=== PATIENT | male | born 1995 | race Caucasian/White ===

== ENCOUNTER 2018-04-12 16:23 | Emergency (ER) | payer OTHER ==
[2018-04-12] MEDS ORDERED: Nicotine Inhaler* 10 MG AMP INH PRN (16:47)
[2018-04-12] MEDS ORDERED: Mouth Piece, Nicotine* 1 EACH CARTRIDGE INH PRN (16:47)
[2018-04-12 17:08] LABS: ABS Basophils 0 10^3/ul (0-0.2); ABS Eosinophils 0.1 10^3/ul (0-0.6); ABS Lymphocytes 1.5 10^3/ul (1.0-4.8); ABS Monocytes 0.4 10^3/ul (0-0.8); ABS Neutrophils 1.4 10^3/ul (1.5-7.7); ABS Nucleated RBC 0 10^3/ul; Eosinophil % 3.4 % (0-6); Hematocrit 44 % (42-52); Hemoglobin 15.4 g/dl (14.0-18.0); Mean Corpuscular HGB Conc 35 g/dl (31-36); Mean Corpuscular Hemoglobin 29 pg (27-31); Mean Corpuscular Volume 83 fL (80-94); Mean Platelet Volume 8.2 um3 (7.4-10.4); Nucleated Red Blood Cells % 0.2; Platelet Count 213 10^3/ul (150-450); Red Blood Count 5.28 10^6/ul (4.00-5.40); Red Cell Distribution Width 14 % (10.5-15); White Blood Count 3.4 10^3/ul (3.5-10.8)
[2018-04-12 17:21] LABS: EGFR Non-African American 110.8 (>60)
[2018-04-12 17:24] LABS: Urine Appearance Clear; Urine Blood Negative (Negative); Urine Color Yellow; Urine Ketones Negative (Negative); Urine Protein Negative (Negative); Urine Specific Gravity 1.013 (1.010-1.030); Urine Urobilinogen Negative (Negative)
--- NOTE | 2018-04-12 19:16 | ED ---
Progress - Progress Note Progress Note: This patient was signed out from Dr. Whalen awabalwinder FERNANDEZ. His parents are here and he wants to go home with them and back to class on Monday. He was doing well on Prozac 10 months ago but stopped taking it. He would like to begin it again. per mental health loom stop checker Maria Alejandra. The patient was evaluated by Dr. Hadley and deemed stable to be discharged home with the dx of depressive disorder. Course/Dx - Course Course Of Treatment: This patient was signed out from Dr. Whalen awabalwinder Tulio. His parents are here and he wants to go home with them and back to class on Monday. He was doing well on Prozac 10 months ago but stopped taking it. He would like to begin it again. per mental health loom stop checker Maria Alejandra. The patient was evaluated by Dr. Hadley and deemed stable to be discharged home with the dx of depressive disorder. - Diagnoses Provider Diagnoses: Depressive disorder Discharge - Sign-Out/Discharge Documenting (check all that apply): Patient Departure, Receiving Sign-Out Receiving patient FROM: Tania Whalen - Discharge Plan Condition: Stable Disposition: HOME Prescriptions: FLUoxetine* [PROzac*] 10 mg PO DAILY #30 ml MDD 1 FLUoxetine* [PROzac*] 10 mg PO DAILY #30 ml MDD 1 Patient Education Materials: Depression (ED), Generalized Anxiety Disorder (ED) Referrals: No Primary Care Phys,NOPCP [Primary Care Provider] - Additional Instructions: Please follow up with psychiatry and your primary care physician as instructed by psychiatry. please start taking prozac as instructed. - Billing Disposition and Condition Condition: STABLE Disposition: Home - Attestation Statements Document Initiated by Marisa: Yes Documenting Scribe: Elmer Guerra Provider For Whom Marisa is Documenting (Include Credential): Dr. Asiya Ramirez Scribe Attestation: Katrin, kenji Marined for Dr. Asiya Ramirez on 04/16/18 at 1040. Scribe Documentation Reviewed: Yes Provider Attestation: The documentation as recorded by the Elmer soriano accurately reflects the service I personally performed and the decisions made by me, Dr. Asiya Ramirez
--- NOTE | 2018-04-12 19:28 | ED ---
Psychiatric Complaint - HPI Summary HPI Summary: A 22 y/o male presents to the ED c/o severe anxiety ongoing for 3 weeks ago. He also c/o depression. Denies SI or HI, audio and visual delusions. He drinks occasionally, but not recently, and is a non-smoker. He admits to smoking marijuana yesterday. He took Xanax last year after seeing a therapist. Pt is an IC student. He is in the ED today due to his parents bringing him here. - History Of Current Complaint Chief Complaint: EDMentalHealth Time Seen by Provider: 04/12/18 16:59 Hx Obtained From: Patient Onset/Duration: Gradual Onset, Lasting Weeks Timing: Constant Severity Initially: Moderate Severity Currently: Moderate Character: Depressed Associated Signs And Symptoms: Negative: Hallucinating Has Suicidal: Denies: Thoughts Has Homicidal: Denies: Thoughts - Allergies/Home Medications Allergies/Adverse Reactions: Allergies Allergy/AdvReac Type Severity Reaction Status Date / Time No Known Allergies Allergy Verified 04/12/18 16:31 Home Medications: Home Medications NK [No Home Medications Reported] 04/12/18 [History Confirmed 04/12/18] PMH/Surg Hx/FS Hx/Imm Hx Previously Healthy: No Sensory History: Denies: Hx Deafness Opthamlomology History: Denies: Hx Legally Blind Psychiatric History: Reports: Hx Anxiety, Hx Depression Infectious Disease History: No Infectious Disease History: Denies: Traveled Outside the [place] in Last 30 Days - Family History Known Family History: Negative: Blood Disorder - Social History Occupation: Student Alcohol Use: Occasionally Hx Substance Use: Yes Substance Use Type: Reports: Marijuana Hx Tobacco Use: No Smoking Status (MU): Never Smoked Tobacco Review of Systems Negative: Fever Negative: Cough Positive: Anxious, Depressed, Other - negative: SI or HI, hallucinations All Other Systems Reviewed And Are Negative: Yes Physical Exam - Summary Physical Exam Summary: GENERAL: Patient is a well-developed and nourished male who is lying comfortable in the stretcher. Patient is not in any acute respiratory distress. HEAD AND FACE: Normocephalic EYES: PERRLA, EOMI x 2. EARS: Hearing grossly intact. MOUTH: Oropharynx within normal limits. NECK: Supple, trachea is midline, no adenopathy, no JVD, no carotid bruit. CHEST: Symmetric, no tenderness at palpation LUNGS: Clear to auscultation bilaterally. No wheezing or crackles. CVS: Regular rate and rhythm, S1 and S2 present, no murmurs or gallops appreciated. ABDOMEN: Soft, non-tender. Bowel sounds are normal. No abdominal abnormal pulsations. EXTREMITIES: Full ROM in all major joints, no edema, no cyanosis or clubbing. NEURO: Alert and oriented x 3. No acute neurological deficits. Speech is normal and follows commands. SKIN: Dry and warm PSYCH: flat affect, linear thought, no SI, no HI, no auditory/visual hallucinations Triage Information Reviewed: Yes Vital Signs On Initial Exam: Initial Vitals Temp Pulse Resp BP Pulse Ox 98 F 58 16 128/67 96 04/12/18 16:25 04/12/18 16:25 04/12/18 16:25 04/12/18 16:25 04/12/18 16:25 Vital Signs Reviewed: Yes Diagnostics - Vital Signs Vital Signs Temp Pulse Resp BP Pulse Ox 04/12/18 18:06 98 F 45 10 110/52 100 04/12/18 16:25 98 F 58 16 128/67 96 - Laboratory Lab Results: Lab Results 04/12/18 04/12/18 04/12/18 Range/Units 16:56 16:56 17:01 WBC 3.4 L (3.5-10.8) 10^3/ul RBC 5.28 (4.00-5.40) 10^6/ul Hgb 15.4 (14.0-18.0) g/dl Hct 44 (42-52) % MCV 83 (80-94) fL MCH 29 (27-31) pg MCHC 35 (31-36) g/dl RDW 14 (10.5-15) % Plt Count 213 (150-450) 10^3/ul MPV 8.2 (7.4-10.4) um3 Neut % (Auto) 40.0 (38-83) % Lymph % (Auto) 45.0 (25-47) % [place] % (Auto) 10.7 H (0-7) % Eos % (Auto) 3.4 (0-6) % Baso % (Auto) 0.9 (0-2) % Absolute Neuts (auto) 1.4 L (1.5-7.7) 10^3/ul Absolute Lymphs (auto) 1.5 (1.0-4.8) 10^3/ul Absolute Monos (auto) 0.4 (0-0.8) 10^3/ul Absolute Eos (auto) 0.1 (0-0.6) 10^3/ul Absolute Basos (auto) 0 (0-0.2) 10^3/ul Absolute Nucleated RBC 0 10^3/ul Nucleated RBC % 0.2 Sodium 138 (135-145) mmol/L Potassium 4.0 (3.5-5.0) mmol/L Chloride 105 (101-111) mmol/L Carbon Dioxide 28 (22-32) mmol/L Anion Gap 5 (2-11) mmol/L BUN 9 (6-24) mg/dL Creatinine 0.87 (0.67-1.17) mg/dL Est GFR ( Amer) 134.0 (>60) Est GFR (Non-Af Amer) 110.8 (>60) BUN/Creatinine Ratio 10.3 (8-20) Glucose 88 (70-100) mg/dL Calcium 9.6 (8.6-10.3) mg/dL Total Bilirubin 0.80 (0.2-1.0) mg/dL AST 19 (13-39) U/L ALT 10 (7-52) U/L Alkaline Phosphatase 62 (34-104) U/L Total Protein 7.6 (6.4-8.9) g/dL Albumin 4.7 (3.2-5.2) g/dL Globulin 2.9 (2-4) g/dL Albumin/Globulin Ratio 1.6 (1-3) TSH 3.50 (0.34-5.60) mcIU/mL Urine Color Yellow Urine Appearance Clear Urine pH 7.0 (5-9) Ur Specific [place] 1.013 (1.010-1.030) Urine Protein Negative (Negative) Urine Ketones Negative (Negative) Urine Blood Negative (Negative) Urine Nitrate Negative (Negative) Urine Bilirubin Negative (Negative) Urine Urobilinogen Negative (Negative) Ur Leukocyte Esterase Negative (Negative) Urine Glucose Negative (Negative) Salicylates < 2.50 (<30) mg/dL Urine Opiates Screen (None Detect) Acetaminophen < 15 mcg/mL Ur Barbiturates Screen (None Detect) Ur Phencyclidine Scrn (None Detect) Ur Amphetamines Screen (None Detect) U Benzodiazepines Scrn (None Detect) Urine Cocaine Screen (None Detect) U Cannabinoids Screen (None Detect) Serum Alcohol < 10 (<10) mg/dL 04/12/18 Range/Units 17:01 WBC (3.5-10.8) 10^3/ul RBC (4.00-5.40) 10^6/ul Hgb (14.0-18.0) g/dl Hct (42-52) % MCV (80-94) fL MCH (27-31) pg MCHC (31-36) g/dl RDW (10.5-15) % Plt Count (150-450) 10^3/ul MPV (7.4-10.4) um3 Neut % (Auto) (38-83) % Lymph % (Auto) (25-47) % [place] % (Auto) (0-7) % Eos % (Auto) (0-6) % Baso % (Auto) (0-2) % Absolute Neuts (auto) (1.5-7.7) 10^3/ul Absolute Lymphs (auto) (1.0-4.8) 10^3/ul Absolute Monos (auto) (0-0.8) 10^3/ul Absolute Eos (auto) (0-0.6) 10^3/ul Absolute Basos (auto) (0-0.2) 10^3/ul Absolute Nucleated RBC 10^3/ul Nucleated RBC % Sodium (135-145) mmol/L Potassium (3.5-5.0) mmol/L Chloride (101-111) mmol/L Carbon Dioxide (22-32) mmol/L Anion Gap (2-11) mmol/L BUN (6-24) mg/dL Creatinine (0.67-1.17) mg/dL Est GFR ( Amer) (>60) Est GFR (Non-Af Amer) (>60) BUN/Creatinine Ratio (8-20) Glucose (70-100) mg/dL Calcium (8.6-10.3) mg/dL Total Bilirubin (0.2-1.0) mg/dL AST (13-39) U/L ALT (7-52) U/L Alkaline Phosphatase (34-104) U/L Total Protein (6.4-8.9) g/dL Albumin (3.2-5.2) g/dL Globulin (2-4) g/dL Albumin/Globulin Ratio (1-3) TSH (0.34-5.60) mcIU/mL Urine Color Urine Appearance Urine pH (5-9) Ur Specific [place] (1.010-1.030) Urine Protein (Negative) Urine Ketones (Negative) Urine Blood (Negative) Urine Nitrate (Negative) Urine Bilirubin (Negative) Urine Urobilinogen (Negative) Ur Leukocyte Esterase (Negative) Urine Glucose (Negative) Salicylates (<30) mg/dL Urine Opiates Screen None detected (None Detect) Acetaminophen mcg/mL Ur Barbiturates Screen None detected (None Detect) Ur Phencyclidine Scrn None detected (None Detect) Ur Amphetamines Screen None detected (None Detect) U Benzodiazepines Scrn None detected (None Detect) Urine Cocaine Screen None detected (None Detect) U Cannabinoids Screen Presumptive positive A (None Detect) Serum Alcohol (<10) mg/dL Result Diagrams: 04/12/18 16:56 04/12/18 16:56 Lab Statement: Any lab studies that have been ordered have been reviewed, and results considered in the medical decision making process. Course/Dx - Course Course Of Treatment: A 22 y/o male presents to the ED c/o severe anxiety since 3 weeks ago. A MH evaluater cleared him at 17:30. Pt will be signed out to Dr. Ramirez upon shift change pending MHE. - Differential Dx/Clinical Impression Provider Diagnosis: Stress, Anxiety attack Discharge - Sign-Out/Discharge Documenting (check all that apply): Sign-Out Patient Signing out patient TO: Asiya Ramirez - pending MHE - Discharge Plan Referrals: No Primary Care Phys,NOPCP [Primary Care Provider] - - Attestation Statements Document Initiated by Scribe: Yes Documenting Scribe: Anjel Mayers Provider For Whom Scribe is Documenting (Include Credential): Tania Whalen MD Scribe Attestation: Anjel Wilkes, scribed for Tania Whalen MD on 04/12/18 at 2102.
[2018-04-12 21:52] VITALS: BP 116/64
== END 2018-04-12 22:05 | disposition home or self-care (01) ==
LOC: ED 16:23
DX: F43.9 Reaction to severe stress, unspecified (principal); F41.0 Panic disorder [episodic paroxysmal anxiety]
CPT/HCPCS: 36415; 80053; 80307; 80320; 80329; 81003; 84443; 85025; 99285; G0480

== ENCOUNTER 2019-03-04 13:04 | Inpatient (IN) | payer OTHER ==
--- NOTE | 2019-03-04 13:36 | ED ---
Psychiatric Complaint - HPI Summary HPI Summary: 23 year old M brought in by law enforcement on from [facility] to [facility] complains of suicide attempts x2, once on Monday03/02/19 PM and once on Monday03/03/19 AM. Patient states that on Monday03/02/19 PM, he tried to suffocate himself with a plastic bag and that on Monday03/03/19 AM, he held a knife to his chest. Per police matron, patient's counselor at [facility] called police today about patient's suicide attempts x2. Symptoms aggravated by nothing. Symptoms alleviated by nothing. Patient states he used to take Prozac but no longer. Patient states he has hx suicidal ideation but no hx suicidal attempts. - History Of Current Complaint Chief Complaint: EDMentalHealth Time Seen by Provider: 03/04/19 13:15 Hx Obtained From: Patient, Other: - police Onset/Duration: Lasting Days - 2, Still Present Timing: Constant Severity Currently: None Aggravating Factor(s): Nothing Alleviating Factor(s): Nothing - Allergies/Home Medications Allergies/Adverse Reactions: Allergies Allergy/AdvReac Type Severity Reaction Status Date / Time No Known Allergies Allergy Verified 03/04/19 13:11 Home Medications: Home Medications NK [No Home Medications Reported] 03/04/19 [History Confirmed 03/04/19] PMH/Surg Hx/FS Hx/Imm Hx Sensory History: Reports: Hx Contacts or Glasses Denies: Hx Legally Blind, Hx Deafness Opthamlomology History: Reports: Hx Contacts or Glasses Denies: Hx Legally Blind Psychiatric History: Reports: Hx Anxiety, Hx Depression, Other Psychiatric Issues/Disorders - suicidal ideation Denies: Hx Eating Disorder, Hx of Violent Episodes Against Others - Surgical History Surgery Procedure, Year, and Place: hernia Infectious Disease History: No Infectious Disease History: Denies: Traveled Outside the [place] in Last 30 Days - Family History Known Family History: Positive: Other - anxiety, depression, biploar - Social History Alcohol Use: Occasionally Hx Substance Use: Yes Substance Use Type: Reports: Marijuana Hx Tobacco Use: No Smoking Status (MU): Never Smoked Tobacco Review of Systems Negative: Fever Positive: Other - suicidal ideation, suicidal attempts x2 All Other Systems Reviewed And Are Negative: Yes Physical Exam - Summary Physical Exam Summary: Appearance: The patient is well-nourished in no acute distress and in no acute pain. Skin: The skin is warm and dry, and skin color reflects adequate perfusion. HEENT: The head is normocephalic and atraumatic. The pupils are equal and reactive. The conjunctivae are clear and without drainage. Nares are patent and without drainage. Mouth reveals moist mucous membranes, and the throat is without erythema and exudate. The external ears are intact. The ear canals are patent and without drainage. The tympanic membranes are intact. Neck: The neck is supple with full range of motion and non-tender. There are no carotid bruits. There is no neck vein distension. Respiratory: Chest is non-tender. Lungs are clear to auscultation and breath sounds are symmetrical and equal. Cardiovascular: Heart is regular rate and rhythm. There is no murmur or rub auscultated. There is no peripheral edema and pulses are symmetrical and equal. Abdomen: The abdomen is soft and non-tender. There are normal bowel sounds heard in all four quadrants and there is no organomegaly palpated. Musculoskeletal: There is no back tenderness noted. Extremities are non-tender with full range of motion. There is good capillary refill. There is no peripheral edema or calf tenderness elicited. Neurological: Patient is alert and oriented to person, place and time. The patient has symmetrical motor strength in all four extremities. Cranial nerves are grossly intact. Deep tendon reflexes are symmetrical and equal in all four extremities. Psychiatric: The patient has an appropriate affect and does not exhibit any anxiety or depression. Triage Information Reviewed: Yes Vital Signs On Initial Exam: Initial Vitals Temp Pulse Resp BP Pulse Ox 99.4 F 94 16 152/73 98 03/04/19 13:07 03/04/19 13:07 03/04/19 13:07 03/04/19 13:07 03/04/19 13:07 Vital Signs Reviewed: Yes Diagnostics - Vital Signs Vital Signs Temp Pulse Resp BP Pulse Ox 03/04/19 13:07 99.4 F 94 16 152/73 98 - Laboratory Result Diagrams: 03/04/19 13:45 03/04/19 13:45 Lab Statement: Any lab studies that have been ordered have been reviewed, and results considered in the medical decision making process. Re-Evaluation - Re-Evaluation First Eval Re-Evaluation Time: 15:31 Comment: patient is medically cleared for MHE Course/Dx - Course Course Of Treatment: Mr. Moreland was medically cleared here in the department and underwent a mental health evaluation. They felt that he was appropriate for an involuntary admission due to self endangerment. - Differential Dx/Clinical Impression Provider Diagnosis: Depression - Physician Notifications Discussed Care Of Patient With: Dannie Long Time Discussed With Above Provider: 20:08 Instructed by Provider To: Other - Dr. Long recommends admission Discharge ED - Sign-Out/Discharge Documenting (check all that apply): Patient Departure - Admit Patient Received Moderate/Deep Sedation with Procedure: No - Discharge Plan Condition: Stable Disposition: ADMITTED TO [facility] Referrals: No Primary Care Phys,NOPCP [Medical Doctor] - - Billing Disposition and Condition Condition: STABLE Disposition: Admitted to [facility] - Attestation Statements Document Initiated by Maribethibe: Yes Documenting Scribe: Thais Cordon Provider For Whom Maribethibe is Documenting (Include Credential): Rey Sen MD Scribe Attestation: Thais Wilkes, scribed for Rey Sen MD on 03/04/19 at 2104. Scribe Documentation Reviewed: Yes Provider Attestation: The documentation as recorded by the Thais soriano accurately reflects the service I personally performed and the decisions made by me, Rey Sen MD Status of Scribe Document: Viewed
[2019-03-04 14:03] LABS: ABS Eosinophils 0.2 10^3/ul (0-0.6); ABS Lymphocytes 1.3 10^3/ul (1.0-4.8); ABS Monocytes 0.4 10^3/ul (0-0.8); ABS Neutrophils 2.6 10^3/ul (1.5-7.7); Eosinophil % 4.3 %; Hematocrit 44 % (42-52); Hemoglobin 15.3 g/dL (14.0-18.0); Lymphocyte % 28.2 %; Mean Corpuscular HGB Conc 35 g/dL (31-36); Mean Corpuscular Hemoglobin 29 pg (27-31); Mean Corpuscular Volume 83 fL (80-94); Mean Platelet Volume 7.8 fL (7.4-10.4); Nucleated Red Blood Cells % 0.1; Platelet Count 242 10^3/uL (150-450); Red Blood Count 5.27 10^6 /uL (4.18-5.48); Red Cell Distribution Width 13 % (10-15); White Blood Count 4.5 10^3/uL (3.5-10.8)
[2019-03-04 14:07] LABS: Urine Appearance Clear; Urine Bilirubin Negative (Negative); Urine Blood Negative (Negative); Urine Color Straw; Urine Glucose Negative (Negative); Urine Ketones Negative (Negative); Urine Nitrite Negative (Negative); Urine Protein Negative (Negative); Urine Specific Gravity 1.009 (1.010-1.030); Urine Urobilinogen Negative (Negative)
[2019-03-04 14:42] LABS: TSH (Thyroid Stimulating Horm) 2.91 mcIU/mL (0.34-5.60)
[2019-03-04 14:45] LABS: ALT 12 U/L (7-52); AST 20 U/L (13-39); Albumin/Globulin Ratio 2.2 (1-3); Alkaline Phosphatase 66 U/L (34-104); Anion Gap 6 mmol/L (2-11); BUN/Creatinine Ratio 17.7 (8-20); Blood Urea Nitrogen 17 mg/dL (6-24); CO2 Carbon Dioxide 29 mmol/L (22-32); Calcium 9.8 mg/dL (8.6-10.3); Chloride 103 mmol/L (101-111); EGFR African American 118.5 (>60); EGFR Non-African American 97.9 (>60); Globulin 2.3 g/dL (2-4); Glucose 94 mg/dL (70-100); Potassium 3.9 mmol/L (3.5-5.0); Sodium 138 mmol/L (135-145); Total Protein 7.3 g/dL (6.4-8.9)
[2019-03-04 14:53] LABS: Acetaminophen < 15 mcg/mL; Alcohol < 10 mg/dL (<10); Salicylate < 2.50 mg/dL (<30)
[2019-03-04 14:56] LABS: Urine Benzodiazepine Screen None Detected (None Detect); Urine Opiates Screen None Detected (None Detect)
[2019-03-04] MEDS ORDERED: Al Hydrox/Mg Hydrox/Simet LIQ* 30 ML UDC PO PRN (22:00)
[2019-03-04] MEDS ORDERED: hydrOXYzine HCL TAB* 50 MG PO PRN (22:00)
[2019-03-04] MEDS ORDERED: Acetaminophen TAB* 325 MG PO PRN (22:00)
[2019-03-05 07:50] LABS: HDL Cholesterol 36.7 mg/dL
--- NOTE | 2019-03-05 10:04 | HP ---
H&P (Free Text) History and Physical: Justification for admission: Immediate Safety. 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 He identifies his trigger for making a suicide attempt to be his mother telling him to figure things out on his own. He expressed frequently thinking about philosophical questions about life and the purpose of human existence. His mother is planning to come from [place] to visit. He stopped taking Prozac 10mg daily in December and wishes to be continued on this medication. He reported currently not having any stress from school "like I was, the last time I was here". This reminded him of the time his parents did not initially accept him after telling them he was hansen. He denied recently isolating himself. He denied access to firearms or stockpiles of medications. He reported no changes in his sleep or appetite. The patient denied homicidal ideation intent or plan. The patient denied auditory and/ or visual hallucinations. MDD He reported feeling depressed and having diminished interests which were found to be enjoyable in the past. At times he endorsed feeling hopeless. , and worthlessness. Denied unintentional weight loss and appetite. Denied interruption of sleep , or feeling tired throughout the day. Denied loss of energy or lack of motivation to complete tasks. Denied overwhelming feelings of guilt or decreased concentration. Denied recurrent thoughts of . Denied thoughts that they would be better off . Anxiety Denied having symptoms of anxiety such as having times where heart feels that it is beating out of chest , sweaty palms, or shallow breathing. Denied having uncomfortable or intrusive thoughts. Denied feeling restless, high strung, or worrying too much most of the time. Bipolar Denied symptoms of oscar such as having many ideas at once. Denied increased talkativeness where no one can interrupt. Denied feeling irritable most of the time while having an persistent abundance of energy most of the day without the use of energy drinks, stimulants, or recreational drug use. Denied an increase in intensity in goal directed activities. Denied having the decreased need to sleep for days , having prolonged elevated mood , or feeling on top of the world. Denied impulsive risky sexual encounters. Denied spending money recklessly , going on spending sprees wiping out savings. Denied impulsively traveling out of town or country, having super gastelum, and unrealistic wealth or fame. Psychosis Does not endorse hearing things that other people do not hear or seeing things other people do not see. Denied feeling that TV is making references. Denied feeling that people are spying , following , or reading their thoughts. Phobias: Patient denied having excessive fear of a particular thing or situation. Eating disorders: Patient denied having excessive eating habits or feelings of guilt after eating. Denied repeated episodes of self induced vomiting after eating. PTSD Denied flashbacks, nightmares and avoidance of a prior traumatic event. PAST PSYCHIATRIC HISTORY: Prior Diagnosis : Major depressive disorder History of past Psychiatric Hospitalizations: No prior psychiatric admission. Similar presentation in the emergency room on 04/12/18 History of past suicide/homicide attempts : 2 past suicide attempts including the most recent. Denied past homicidal incidents. Outpatient follow-up: [facility] Medications: Past trials of medications include prozac 10mg with a favorable response he stopped taking it in December after feeling better and stopped it when his medication ran out. Guardianship: None. FAMILY HISTORY: - Suicide: Denied family history of suicide. - Mental illness: Denied a history of mental health in immediate family members. - Substance abuse: Denied substance abuse among family members. SUBSTANCE ABUSE HISTORY: - EtOH: Rarely uses - Tobacco: Denied - Cannabis: Uses 2x weekly by smoking, denied cannabis to be problematic in his life - Heroin: Denied - Cocaine: Denied - Substance abuse treatment: Denied past substance abuse treatment SOCIAL HISTORY: - Childhood: Denied a history of sexual and or physical abuse. He was raised by both of his parents in [facility]. - Education: Currently in College - Living situation: Lives on campus at [facility] - Relationship: Single, identifies as homosexual - Legal history: Denied - service history: Denied PAST MEDICAL HISTORY: Denied heart disease, diabetes, cancer and/ or other medical conditions. - Allergies: Denied drug or other allergies. Physical Exam: Please see ED note Mental Status Exam on Admission APPEARANCE : 23 year old male who appears stated age. Patient is not malodourous, and appears to have fair hygiene and grooming. BEHAVIOR: Cooperative , calm EYE CONTACT: Fair PSYCHOMOTOR ACTIVITY: No psychomotor agitation or retardation. MOVEMENTS: No abnormal movements observed. SPEECH : Normal rate, rhythm, volume and tone. MOOD : "okay " AFFECT : Type elevated Range is restricted Mood Congruent THOUGHT PROCESS: Formulated and organized in a logical, linear goal directed manner. No flight of ideas, neologism (made up words) , perseveration , tangential , loose associations , or circumstantiality. THOUGHT CONTENT: no delusions, obsessions, phobias or preoccupations. PERCEPTION: No current auditory or visual hallucinations. Doesnt appear to be responding to internal cues. No evidence of depersonalization , de-realization, or illusions SUICIDALITY Recent suicide attempt HOMICIDALITY Denied homicidal ideation, intent or plan. Insight/judgment: Fair insight and judgment ORIENTATION: Oriented to self, location, and time. Diagnosis on Admission: Major depressive disorder, severe. Rule out borderline personality disorder. 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 Plan #Admit to BSU, Q15 minute observation. Start regular diet. Encourage participation in activities on the milieu. #Patient evaluated in ED and was determined by the emergency room Physician to be medically fit for admission to the BSU. # Justification for Admission: For immediate safety per outlined in the [place] Mental Hygiene Code. # The patient requires psychiatric inpatient admission at this time to assure safety, receive treatment and work toward stabilization. # Labs ordered: CBC, CMP, UDS, TSH, HBA1c, TSH, Toxicology screen, Urine analysis, and lipid profile. # Obtain collateral information once release is signed. # Collaboration with Social Work # Given a past favorable response to prozac will restart at 10mg daily with the plan to increase to 20mg. #MMPI #Goals before discharge include: To eliminate/ reduce suicidal ideation Tentative Discharge: Pending psychiatric stabilization The risks, benefits, and alternative treatment options were discussed as well as the risks of refusing treatment. After this discussion and an acknowledgement of this understanding was made. A risk/ benefit assessment of treatment was considered and discussed with the patient. When comparing the risks of treatment with the dangers of not receiving treatment, the benefits of treatment outweigh the treatment risks at this time. Risks of allergy, suicidal ideation, behavioral changes, dystonia, rashes, electrolyte imbalances, movement disorders, cardiac conduction changes, serotonin syndrome, metabolic risks were among some of the risks discussed. Acetaminophen (Tylenol Tab*) 650 mg PO Q4H PRN PRN Reason: PAIN or TEMP > 101 F Al Hydrox/Mg Hydrox/Simethicone (Maalox Plus*) 30 ml PO Q4H PRN PRN Reason: INDIGESTION Fluoxetine HCl (Prozac Cap*) 10 mg PO DAILY [facility] Hydroxyzine HCl (Atarax Tab*) 50 mg PO Q6H PRN PRN Reason: .ANXIETY Multivitamins (Theragran Tab*) 1 tab PO DAILY [facility] Last Admin: 03/05/19 11:19 Dose: Not Given Sodium 138 mmol/L (135-145) 03/04/19 13:45 Potassium 3.9 mmol/L (3.5-5.0) 03/04/19 13:45 BUN 17 mg/dL (6-24) 03/04/19 13:45 Creatinine 0.96 mg/dL (0.67-1.17) 03/04/19 13:45 Hemoglobin A1c 4.7 % (4.0-5.6) 03/05/19 06:54 Calcium 9.8 mg/dL (8.6-10.3) 03/04/19 13:45 AST 20 U/L (13-39) 03/04/19 13:45 ALT 12 U/L (7-52) 03/04/19 13:45 Triglycerides 83 mg/dL 03/05/19 06:54 Cholesterol 138 mg/dL 03/05/19 06:54 LDL Cholesterol 85 mg/dL 03/05/19 06:54
[2019-03-05] MEDS: Vitamin THERAPEUTIC TAB PO SCH (11:19)
[2019-03-05] MEDS: FLUoxetine CAP* 10 MG PO SCH (13:01)
[2019-03-06] MEDS: Vitamin THERAPEUTIC TAB PO SCH (09:43)
[2019-03-06] MEDS: FLUoxetine CAP* 10 MG PO SCH (09:43)
--- NOTE | 2019-03-06 13:31 | PN ---
Subjective - Subjective Date of Service: 03/06/19 Service Type: [id number] Hosp care 15 min low complexity Subjective: Fanta's care was taken over by this clinician due to Dr. Marie being off service for the following week. I spoke with Bret in the day area and he continues to endorse feeling better and denying SI. "This has been a good experience so far. I'm going to the groups and putting new tools in my toolbox in terms of coping skills." The patient is future-oriented, stating that he is set to graduate from [employer] this May and then either move to 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 I spoke with his mother, Cami Moreland, over the phone and she indicates her feeling that the patient would be safe being discharged and receiving care at the mental health clinic at [facility]. The patient is active in groups and milieu programming and is social with peers. Objective - General Observations Appearance: Neat, Well Groomed Appears Stated Age: Yes Stature: WNL Posture: WNL Eye Contact: Average Behavior/Activity: WNL - Interaction Observations Attitude Towards Examiner: Cooperative Stated Mood: Euthymic Affect: Full Speech Pattern/Tone: Clear, Appropriate, Normal Volume Thought Process: Coherent Perception: WNL Thought Content: WNL Hallucination Type: None Delusion Type: None - Cognitive Function Orientation: A&O x 4 Level of Consciousness: Awake, Alert, Appropriate Cognition: WNL Estimated Intelligence: Normal Insight: WNL Judgment Within Normal Limits: Yes - Medication Compliance Cooperative with Inpatient Medication Regimen: Yes - Group Participation Participates in Group Activities: Yes Assessment - Assessment Merits Inpatient Hospitalization: Consolidate Improvements, Pending Safe DC Plan Inpatient DSM-V Dx: F33.1 Clinical Impression: 23 y.o. 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 BSU: Problem List - Patient Problems (1) MDD (major depressive disorder), recurrent episode, moderate Current Visit: Yes Status: Acute Priority: High Code(s): F33.1 - MAJOR DEPRESSIVE DISORDER, RECURRENT, MODERATE SNOMED Code(s): 111503166 Plan - Plan Treatment Plan: Name: FANTA MORELAND Birthdate: 1995 [id number] The patient has been restarted on fluoxetine 10mg PO qday and we will increase this to 20mg tomorrow. [employer] tomorrow (03/07) for discharge. Continued Medication Management: Start Medication Medications: Current Medications Acetaminophen (Tylenol Tab*) 650 mg PO Q4H PRN PRN Reason: PAIN or TEMP > 101 F Al Hydrox/Mg Hydrox/Simethicone (Maalox Plus*) 30 ml PO Q4H PRN PRN Reason: INDIGESTION Fluoxetine HCl (Prozac Cap*) 10 mg PO DAILY [facility] Last Admin: 03/06/19 09:43 Dose: 10 mg Hydroxyzine HCl (Atarax Tab*) 50 mg PO Q6H PRN PRN Reason: .ANXIETY Multivitamins (Theragran Tab*) 1 tab PO DAILY [facility] Last Admin: 03/06/19 09:43 Dose: 1 tab - Discharge Plan Discharge Plan: Inpatient Hospitalization
[2019-03-07] MEDS ORDERED: FLUoxetine CAP* 20 MG PO SCH (09:00)
[2019-03-07 09:48] VITALS: BP 141/75
[2019-03-07] MEDS: Vitamin THERAPEUTIC TAB PO SCH (09:58)
--- NOTE | 2019-03-07 14:39 | DS ---
DISCHARGE SUMMARY: DATE OF ADMISSION: 03/04/19 DATE OF DISCHARGE: 03/07/19 DISCHARGE DIAGNOSES: Baxley I: Major depressive disorder, recurrent, moderate. Baxley II: Histrionic pe rsonality trait. CONDITION AT THE TIME OF DISCHARGE: Improved. The patient continues to deny further suicidal ideati ons. He has safely resumed antidepressant therapy with fluoxetine and is tolerating this quite well. He has been safe on all checks and endorsing future directed thought contents. 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 We have spoken with the patient's mother , Hoda Moreland, who indicates her feeling that the patient is safe to return to the campus at [facility]. She is in agreement with the discharge plan. The patient has followups not only with the [facility] office but also with crisis management services to advocate for h academically because he has missed several days of school at this point. The patient has been vis ible on the unit, socializing with peers, attending groups and participating fully in [facility] activCentice es. At this time, we see no barrier to him receiving effective treatment in the outpatient setting a nd he is appropriately requesting discharge. MENTAL STATUS EXAM: The patient is a young, somewhat a feminine appearing white male, who is clean a nd well groomed in street clothing. He is calm, cooperative, has speech that is normal in rate, tone , and volume. He is easy to establish rapport with. Mood is euthymic with full affect. Thought pro cess is linear and goal directed. Thought content is significant for his desire to be discharged fro m the hospital. The patient denies suicidal or homicidal ideations. He denies auditory or visual elias llucinations. Insight and judgment are fair given his willingness to followup outpatient services. Cognitively, he is awake and alert with what appeared to be an average intellect. DISCHARGE INSTRUCTIONS: To the patient are as follows: Part A: Medications: He is taking fluoxetine 20 mg p.o. daily. Part B: Diet is regular. Part C: Activities as tolerated. The patient is a nonsmoker. There are no laboratory or diagnostic studies pending at the time of discharge. Part D: Followup care: The patient has an appointment with the [facility] manufacturing manager at 9 o 'clock on 03/08/19 at the [facility]. In addition, he has a followup with [facility] on 03/15/19 at 9 a.m. Part E: Substance abuse followup is nonapplicable. Part F: Disposition: The patient is returning to his apartment. 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 Apparently, the patient had placed a plastic bag over his head and at a later t veronica placed a knife to his chest approximately on 03/02/19. He later told a friend on the and was picked up by [facility] security and brought to the hospital for further evaluation. He id entified his trigger for making suicide attempts to be his conflict with his mother. He expressed fr equently thinking about philosophical questions about life and the purpose of human existence. The p atient had been successfully treated with fluoxetine 10 mg up until December when he discontinued this me dication reporting that he felt better. Additional stressors are that there is conflict with the fam tina about him being homosexual and he has different political beliefs than his parents. He denied ac cess to firearms or stockpiles of medications. He reported no changes in his sleep or appetite. He denied homicidality with intention or plan and he denied psychotic symptoms. His depressive symptoms in addition to dysthymia included diminished interest, feelings of hopelessness and worthlessness, a nd some emergence of suicidal ideations; however, he did deny sleep disturbance, appetite loss, guilt , or decreased concentration. Part B: Psychiatric treatment rendered: The patient was [facility] where he was placed on q.15-minute checks for his own safety. We resumed fluoxetine therapy initia lly 10 mg daily, however, this was increased on the third day of hospitalization to the full 20 mg do se. He tolerated the medication well and was an eager participant in group programming stating that he he got several new coping skills in order to deal with stressors from his attendance and participa tion in group therapy. The patient was often social with peers. His affect seemed to bright conside rably after admission. Both of his parents visited from [facility], which is where the patient from. He also received a visit by his grandmother with whom he is quite close. The patie nt was agreeable to resumption of outpatient psychotherapy in the campus mental health setting. He h ad communication with the crisis management service at [facility] and appropriately requested use of his laptop, so that he would keep up the school assignments. We found him to be very cooperative with recommended treatments and he is requesting treatment in a less restrictive setting at this [facility]. At this juncture, we see no barriers to his successful treatment in the outpatient setting and ar e appropriately discharging him. [id number]/CPS #: [id number]
== END 2019-03-07 14:06 | disposition home or self-care (01) | DRG 751 ==
LOC: ED 13:04 → BSU 21:00
PROVIDERS: ADMIT Psychiatry & Neurology Psychiatry; ATTEND Psychiatry & Neurology Psychiatry
DX: F33.1 Major depressive disorder, recurrent, moderate (principal); R45.851 Suicidal ideations; F41.9 Anxiety disorder, unspecified; Z91.5 Personal history of self-harm; Z81.8 Family history of other mental and behavioral disorders; Z72.89 Other problems related to lifestyle
CPT/HCPCS: 36415; 80053; 80061; 80307; 80320; 80329; 81003; 83036; 84443; 85025; 99222; 99231; 99238; 99284; A9270-GY; G0480